=== PATIENT | male | born 1965 | race Caucasian/White ===

== ENCOUNTER → 2016-09-03 | Outpatient (CLI) | payer MEDICARE, MEDICAID ==
[~2016-09-03] MED LIST: ACET25TA PO; CARB400T4 PO; COLA100C PO; DRIS50002 PO; FENO48TA2 PO; LORA10TA2 PO; OMEP20CA3 PO; RANI15TA PO; ROSU10TA PO
[2016-09-03 09:33] LABS: ANION GAP 9 MEQ/L (8-16); BLOOD UREA NITROGEN 14 MG/DL (7-18); CALCIUM LEVEL 8.2 MG/DL (8.5-10.1); CARBAMAZEPINE (TEGRETOL) LEVEL 7.7 UG/ML (4.0-10.0); CARBON DIOXIDE LEVEL 22 MEQ/L (21-32); CHLORIDE LEVEL 110 MEQ/L (98-107); CREATININE FOR GFR 0.87 MG/DL (0.70-1.30); GLOMERULAR FILTRATION RATE > 60.0 (>56); GLUCOSE, FASTING 85 MG/DL (70-105); POTASSIUM SERUM 3.9 MEQ/L (3.5-5.1); SODIUM LEVEL 141 MEQ/L (136-145)
== END ==
LOC: M WUC 08:19
PROVIDERS: ATTEND Nurse Practitioner Family
DX: R56.9 Unspecified convulsions (principal)
CPT/HCPCS: 36415; 80048; 80156; G0480

== ENCOUNTER 2016-11-30 15:53 | Emergency (ER) | payer MEDICARE, MEDICAID ==
[~2016-11-30] VITALS: Ht 170.2 cm; Wt 74.8 kg
[~2016-11-30 15:53] MED LIST changes: -COLA100C PO; +COLA100C3 PO; +CRES10TA32 PO; -ROSU10TA PO
[2016-11-30] MEDS ORDERED: COLA100C3 PO (16:16)
[2016-11-30 17:13] VITALS: BP 170/90
== END 2016-11-30 17:15 | disposition home or self-care (01) ==
LOC: M ED 16:43
DX: T50.901A Poisoning by unspecified drugs, medicaments and biological substances, accidental (unintentional), initial encounter (principal); X58.XXXA Exposure to other specified factors, initial encounter; Y92.9 Unspecified place or not applicable; Y93.9 Activity, unspecified; Y99.9 Unspecified external cause status; G40.909 Epilepsy, unspecified, not intractable, without status epilepticus; F79 Unspecified intellectual disabilities; Z79.899 Other long term (current) drug therapy

== ENCOUNTER → 2017-03-12 | Outpatient (CLI) | payer MEDICARE, MEDICAID ==
[~2017-03-12] MED LIST changes: +ACET250T2 PO; -ACET25TA PO; -COLA100C3 PO; +COLA100C5 PO; +NYST10CR
[2017-03-12 13:55] LABS: MEAN CORPUSCULAR HEMOGLOBIN 31.2 pg (27.0-33.0); MEAN CORPUSCULAR HGB CONC 32.6 g/dl (32.0-36.5); MEAN CORPUSCULAR VOLUME 95.7 fl (80.0-96.0); RED CELL DISTRIBUTION WIDTH 13.1 % (11.5-14.5); WHITE BLOOD COUNT 7.7 10^3/uL (4.0-10.0)
[2017-03-12 14:53] LABS: ANION GAP 10 MEQ/L (8-16); BLOOD UREA NITROGEN 16 MG/DL (7-18); CALCIUM LEVEL 8.7 MG/DL (8.5-10.1); CARBON DIOXIDE LEVEL 24 MEQ/L (21-32); CHLORIDE LEVEL 107 MEQ/L (98-107); CREATININE FOR GFR 1.06 MG/DL (0.70-1.30); GLOMERULAR FILTRATION RATE > 60.0 (>56); GLUCOSE, FASTING 110 MG/DL (70-105); SODIUM LEVEL 141 MEQ/L (136-145)
== END ==
LOC: M WUC 08:32
PROVIDERS: ATTEND Nurse Practitioner Family
DX: E55.9 Vitamin D deficiency, unspecified (principal); D64.9 Anemia, unspecified

== ENCOUNTER 2017-03-29 07:32 | Emergency (ER) | payer MEDICARE, MEDICAID ==
[~2017-03-29] VITALS: Ht 162.6 cm; Wt 75.0 kg
[~2017-03-29 07:32] MED LIST changes: -NYST10CR
[2017-03-29 07:46] VITALS: BP 133/91
[2017-03-29] MEDS ORDERED: NYST10CR (07:50)
[2017-03-29 08:50] LABS: MICROSCOPIC INDICATED? MAN YES (NO)
[2017-03-29 08:58] LABS: MICROSCOPIC EXAM PERFORMED
[2017-03-29 08:59] LABS: BACTERIA, URINE MOD AMOUNT; HYALINE CAST, URINE NONE SEEN /lpf (0-1); SQUAMOUS EPITHELIAL CELL URINE LARGE AMOUNT /hpf (SMALL AMT)
== END 2017-03-29 08:55 | disposition home or self-care (01) ==
LOC: M ED 07:32
DX: L22 Diaper dermatitis (principal); F79 Unspecified intellectual disabilities; K21.9 Gastro-esophageal reflux disease without esophagitis; E78.00 Pure hypercholesterolemia, unspecified; R56.9 Unspecified convulsions; Z87.442 Personal history of urinary calculi; Z79.899 Other long term (current) drug therapy

== ENCOUNTER → 2019-02-26 | Outpatient (CLI) | payer MEDICARE, MEDICAID ==
[~2019-02-26] MED LIST changes: +CRES10TA PO; -CRES10TA32 PO; -DRIS50002 PO; +DRIS50003 PO; -LORA10TA2 PO; +LORA10TA3 PO; +NYST10CR; -OMEP20CA3 PO; +OMEP20CA4 PO
[2019-02-26 12:12] LABS: BASO # 0.1 10^3/uL (0.0-0.2); BASO % 0.6 % (0.0-1.0); EOS # 0.1 10^3/uL (0.0-0.5); EOS % 0.9 % (0.0-3.0); HEMATOCRIT 42.3 % (42.0-52.0); HEMOGLOBIN 13.7 g/dl (13.5-17.5); LYMPH % 24.8 % (24.0-44.0); MEAN CORPUSCULAR HEMOGLOBIN 31.5 pg (27.0-33.0); MEAN CORPUSCULAR HGB CONC 32.4 g/dl (32.0-36.5); MEAN CORPUSCULAR VOLUME 97.2 fl (80.0-96.0); MONO # 0.6 10^3/uL (0.0-0.8); MONO % 7.9 % (0.0-5.0); NEUTROPHILS # 5.2 10^3/uL (1.5-8.5); NEUTROPHILS % 64.8 % (36.0-66.0); PLATELET COUNT, AUTOMATED 293 10^3/uL (150-450); RED BLOOD COUNT 4.35 10^6/uL (4.30-6.10)
[2019-02-26 12:52] LABS: ALBUMIN 3.8 GM/DL (3.2-5.2); ALT/SGPT 20 U/L (12-78); BILIRUBIN,TOTAL 0.2 MG/DL (0.2-1.0); BLOOD UREA NITROGEN 15 MG/DL (7-18); CALCIUM LEVEL 8.7 MG/DL (8.5-10.1); CARBON DIOXIDE LEVEL 21 MEQ/L (21-32); CHLORIDE LEVEL 110 MEQ/L (98-107); CHOLESTEROL LEVEL 213 MG/DL (<200); CREATININE FOR GFR 1.11 MG/DL (0.70-1.30); GLOMERULAR FILTRATION RATE > 60.0 (>56); GLUCOSE, FASTING 103 MG/DL (70-100); HDL CHOLESTEROL 63 MG/DL (>40); LDL CHOLESTEROL 112 MG/DL (<100); NON-HDL-C 150 MG/DL; SODIUM LEVEL 143 MEQ/L (136-145); TOTAL PROTEIN 6.6 GM/DL (6.4-8.2); TRIGLYCERIDES LEVEL 191 MG/DL (<150)
[2019-02-26 13:27] LABS: HEMOGLOBIN A1c 5.5 %
== END ==
LOC: M WUC 08:37
PROVIDERS: ATTEND Nurse Practitioner Family
DX: Z00.01 Encounter for general adult medical examination with abnormal findings (principal); E78.5 Hyperlipidemia, unspecified; I10 Essential (primary) hypertension; Z79.899 Other long term (current) drug therapy

== ENCOUNTER → 2022-01-18 | Outpatient (CLI) | payer MEDICARE, MEDICAID ==
[~2022-01-18] MED LIST changes: -FENO48TA2 PO; +FENO48TA8 PO; +NYST-13; -NYST10CR; +OMEP1CAP73 PO; -OMEP20CA4 PO
[2022-01-18 11:00] LABS: ALBUMIN 3.7 GM/DL (3.2-5.2); ALT/SGPT 25 U/L (12-78); BILIRUBIN,TOTAL 0.1 MG/DL (0.2-1.0); BLOOD UREA NITROGEN 13 MG/DL (7-18); CALCIUM LEVEL 8.5 MG/DL (8.5-10.1); CARBON DIOXIDE LEVEL 24 MEQ/L (21-32); CHLORIDE LEVEL 110 MEQ/L (98-107); CHOLESTEROL LEVEL 235 MG/DL (<200); CHOLESTEROL RISK RATIO 4.519 (<5); FREE T4 0.62 NG/DL (0.76-1.46); GLOMERULAR FILTRATION RATE > 60.0 (>56); GLUCOSE, FASTING 83 MG/DL (70-100); HDL CHOLESTEROL 52 MG/DL (>40); LDL CHOLESTEROL 138 MG/DL (<100); NON-HDL-C 183 MG/DL; SODIUM LEVEL 140 MEQ/L (136-145); TOTAL PROTEIN 6.6 GM/DL (6.4-8.2); TRIGLYCERIDES LEVEL 223 MG/DL (<150)
[2022-01-18 11:24] LABS: TOTAL 25(OH) VITAMIN D 16.9 NG/ML (30.0-100.0)
[2022-01-18 12:03] LABS: HEPATITIS C VIRUS ABY INDEX < 0.0 INDEX (<0.8)
[2022-01-18 12:04] LABS: HIV 1&2 SCREEN CENTAUR NEGATIVE (NEGATIVE)
== END ==
LOC: M WUC 08:13
PROVIDERS: ATTEND Family Medicine Addiction Medicine
DX: E78.5 Hyperlipidemia, unspecified (principal); Z68.31 Body mass index [BMI] 31.0-31.9, adult; E55.9 Vitamin D deficiency, unspecified; Z11.3 Encounter for screening for infections with a predominantly sexual mode of transmission

== ENCOUNTER → 2023-10-24 | Outpatient (CLI) | payer MEDICARE, MEDICAID ==
[~2023-10-24] MED LIST changes: +ACET250T18 PO; -ACET250T2 PO; +CARB400T11 PO; -CARB400T4 PO
[2023-10-24 09:56] LABS: ALBUMIN 3.8 G/DL (3.2-5.2); ALKALINE PHOSPHATASE 74 U/L (46-116); ALT/SGPT 21 U/L (7.0-40); AST/SGOT 14 U/L (<34); BILIRUBIN,TOTAL 0.2 MG/DL (0.3-1.2); BLOOD UREA NITROGEN 17 MG/DL (9-23); CALCIUM LEVEL 9.1 MG/DL (8.5-10.1); CARBON DIOXIDE LEVEL 24 MMOL/L (20-31); CHLORIDE LEVEL 110 MMOL/L (98-107); CHOLESTEROL LEVEL 245 MG/DL (<200); CREATININE FOR GFR 1.08 MG/DL (0.70-1.30); GLOMERULAR FILTRATION RATE > 60.0 (>56); GLUCOSE, FASTING 94 MG/DL (60-100); HDL CHOLESTEROL 55.6 MG/DL (>40); NON-HDL-C 189.4 MG/DL; POTASSIUM SERUM 4.3 MMOL/L (3.5-5.1); SODIUM LEVEL 141 MMOL/L (136-145); TOTAL PROTEIN 6.5 G/DL (5.7-8.2); TRIGLYCERIDES LEVEL 162 MG/DL (<150)
[2023-10-24 09:57] LABS: THYROID STIMULATING HORMONE 2.997 uIU/ML (0.55-4.78)
== END ==
LOC: M RAD 07:57
PROVIDERS: ATTEND Family Medicine Addiction Medicine
DX: E78.5 Hyperlipidemia, unspecified (principal); M17.12 Unilateral primary osteoarthritis, left knee

== ENCOUNTER → 2025-05-06 | Outpatient (CLI) | payer MEDICARE, MEDICAID ==
[~2025-05-06] MED LIST changes: -NYST-13; +NYST0.1C
[2025-05-06 11:13] LABS: ALT/SGPT 20.0 U/L (7.0-40); AST/SGOT 17.0 U/L (<34); CALCIUM LEVEL 9.1 MG/DL (8.3-10.6); CARBON DIOXIDE LEVEL 25.0 MMOL/L (20-31); CHLORIDE LEVEL 109.0 MMOL/L (98-107); CHOLESTEROL LEVEL 230.0 MG/DL (<200); CHOLESTEROL RISK RATIO 4.47 (<5); CREATININE FOR GFR 1.0 MG/DL (0.70-1.30); GLOMERULAR FILTRATION RATE 86.2 (>49); LDL CHOLESTEROL 156.0 MG/DL (<100); NON-HDL-C 178.6 MG/DL; POTASSIUM SERUM 4.4 MMOL/L (3.5-5.1); SODIUM LEVEL 144.0 MMOL/L (136-145); TRIGLYCERIDES LEVEL 113.0 MG/DL (<150)
== END ==
LOC: M PLALAB 08:40
PROVIDERS: ATTEND Family Medicine Addiction Medicine
DX: E78.5 Hyperlipidemia, unspecified (principal)